=== PATIENT | female | born 1955 | race Caucasian/White ===

== ENCOUNTER → 2016-09-08 | Outpatient (CLI) | payer BC ==
[2016-09-08 12:51] LABS: MEAN CORPUSCULAR HEMOGLOBIN 30.9 pg (27.0-33.0); MEAN CORPUSCULAR HGB CONC 34.5 g/dl (32.0-36.5); MEAN CORPUSCULAR VOLUME 89.5 fl (80.0-96.0); RED CELL DISTRIBUTION WIDTH 12.3 % (11.5-14.5); WHITE BLOOD COUNT 4.7 K/mm3 (4.0-10.0)
[2016-09-08 13:18] LABS: ALBUMIN 4.2 GM/DL (3.2-5.2); ALKALINE PHOSPHATASE 93 U/L (45-117); ALT/SGPT 40 U/L (12-78); ANION GAP 6 MEQ/L (8-16); AST/SGOT 32 U/L (15-37); BILIRUBIN,TOTAL 0.6 MG/DL (0.2-1.0); BLOOD UREA NITROGEN 18 MG/DL (7-18); CALCIUM LEVEL 9.2 MG/DL (8.8-10.2); CARBON DIOXIDE LEVEL 31 MEQ/L (21-32); CHLORIDE LEVEL 106 MEQ/L (98-107); CREATININE FOR GFR 0.84 MG/DL (0.55-1.02); GLOMERULAR FILTRATION RATE > 60.0 (>45); GLUCOSE, FASTING 90 MG/DL (80-110); SODIUM LEVEL 143 MEQ/L (136-145); TOTAL PROTEIN 7.2 GM/DL (6.4-8.2)
[2016-09-11 09:22] LABS: VITAMIN B12 LEVEL 570 PG/ML (247-911)
== END ==
LOC: M LAB 12:14
PROVIDERS: ATTEND Physician Assistant
DX: K50.00 Crohn's disease of small intestine without complications (principal)

== ENCOUNTER → 2017-05-16 | Outpatient (CLI) | payer BC ==
[2017-05-16 20:57] LABS: ALBUMIN 4.1 GM/DL (3.2-5.2); ALBUMIN/GLOBULIN RATIO 1.24 (1.00-1.93); ALKALINE PHOSPHATASE 112 U/L (45-117); ALT/SGPT 72 U/L (12-78); ANION GAP 7 MEQ/L (8-16); AST/SGOT 47 U/L (7-37); BILIRUBIN,TOTAL 0.3 MG/DL (0.2-1.0); BLOOD UREA NITROGEN 18 MG/DL (7-18); CALCIUM LEVEL 8.8 MG/DL (8.8-10.2); CARBON DIOXIDE LEVEL 32 MEQ/L (21-32); CHLORIDE LEVEL 103 MEQ/L (98-107); CREATININE FOR GFR 0.88 MG/DL (0.55-1.02); GLOMERULAR FILTRATION RATE > 60.0 (>45); GLUCOSE, FASTING 161 MG/DL (80-110); POTASSIUM SERUM 3.8 MEQ/L (3.5-5.1); SODIUM LEVEL 142 MEQ/L (136-145); TOTAL PROTEIN 7.4 GM/DL (6.4-8.2)
== END ==
LOC: M LAB 20:06
PROVIDERS: ATTEND Nurse Practitioner Women's Health
DX: Z12.31 Encounter for screening mammogram for malignant neoplasm of breast (principal)

== ENCOUNTER → 2021-02-02 | Outpatient (CLI) | payer OTHER ==
--- NOTE | 2021-02-02 16:27 | REPMRS ---
Patient History The patient states she has not had a clinical breast exam in over a year. Patient is postmenopausal. Family history of unknown cancer in father, breast cancer in maternal aunt, breast cancer in maternal aunt, unknown cancer in paternal grandfather. No breast complaints today Patient signed the MRS sheet No covid vaccine Priors done @ [facility] Patient Identification Verified Digital Woman Screen Mammo: February 02, 2021 - Exam #: [id number] Bilateral CC and MLO view(s) were taken. Technologist: Cici Gonzalez, Technologist Prior study comparison: February 08, 2020, bilateral digital mammo screening bilat, performed at [facility]. July 08, 2018, bilateral digital mammo screening bilat, performed at [facility]. FINDINGS: There are scattered fibroglandular densities. Screening. Digital screening (2D) mammography was performed bilaterally in the CC and MLO projections. Additionally, breast tomosynthesis (3D mammography) was performed bilaterally in the CC and MLO projections. Todays exam was compared to the prior exam/exams. By history, the patient has no complaints of a palpable breast abnormality or other significant breast complaints. The breasts are unchanged in size and shape. There are no wanda-soft tissue densities or spiculated masses. There is no internal architectural distortion. There are no suspicious wanda-calcific clusters. Skin thickening or nipple retraction is not present. IMPRESSION: BI-RADS Category 2- Benign Findings. There is no evidence of malignant alteration of the breasts. Followup examination recommended in one year. The Volpara volumetric breast density category is B, there are scattered areas of fibroglandular densities. This mammogram was [facility] FDA approved computer aided detection system for mammography. The lifetime Tyrer-Cuzick score is 13.3 % Negative x-ray reports should not delay surgical consultation if a dominant or clinically suspicious mass is present. Not all breast cancers can be identified by mammography. Therefore, we recommend that you continue to perform regular breast self-examination and physical examination and then promptly contact your physician of any concerns or changes. Adenosis and dense breasts may obscure an underlying neoplasm. Assessment: BI-RADS/ACR category 2 mammogram. Benign Findings. Recommendation Routine screening mammogram of both breasts in 1 year. Electronically Signed By: Nathen Mcmullen DO 02/02/21 [id number]
== END ==
LOC: M WHC 11:05
PROVIDERS: ATTEND Family Medicine
DX: Z12.31 Encounter for screening mammogram for malignant neoplasm of breast (principal)

== ENCOUNTER → 2022-02-11 | Outpatient (CLI) | payer OTHER | LOC: M WHC 08:02 | PROVIDERS: ATTEND Nurse Practitioner Family | DX: Z12.31 Encounter for screening mammogram for malignant neoplasm of breast (principal) ==

== ENCOUNTER → 2022-06-26 | Outpatient (CLI) | payer BC | LOC: M PLALAB 12:39 → M PLAIMG 12:39 | PROVIDERS: ATTEND Nurse Practitioner Family | DX: M25.551 Pain in right hip (principal) ==

== ENCOUNTER → 2022-09-07 | Outpatient (CLI) | payer BC | LOC: M RAD 10:15 | PROVIDERS: ATTEND Specialist | DX: M50.00 Cervical disc disorder with myelopathy, unspecified cervical region (principal) ==

== ENCOUNTER → 2023-02-26 | Outpatient (CLI) | payer OTHER | LOC: M WHC 09:54 | PROVIDERS: ATTEND Nurse Practitioner Family | DX: Z12.31 Encounter for screening mammogram for malignant neoplasm of breast (principal) ==

== ENCOUNTER → 2024-03-16 | Outpatient (CLI) | payer OTHER | LOC: M WHC 07:36 | PROVIDERS: ATTEND Family Medicine | DX: Z12.31 Encounter for screening mammogram for malignant neoplasm of breast (principal) ==

== ENCOUNTER 2024-10-15 22:32 | Observation (INO) | payer MEDICARE, OTHER ==
[~2024-10-15] VITALS: Ht 165.1 cm; Wt 88.6 kg
[2024-10-15] MEDS: NS (Normal Saline) 0.9% 1,000 ML IV ONE (23:30)
[2024-10-16] MEDS: ACETAMINOPHEN *IV* 1,000 MG in IV 1 EA IV ONE ×2 (00:35→08:16)
[2024-10-16 00:44] LABS: BASO % 0.2 % (0.0-1.0); HEMATOCRIT 31.8 % (36.0-47.0); HEMOGLOBIN 10.6 g/dl (12.0-15.5); LYMPH # 0.6 10^3/uL (1.5-5.0); LYMPH % 7.6 % (24.0-44.0); MEAN CORPUSCULAR HEMOGLOBIN 32.3 pg (27.0-33.0); MEAN CORPUSCULAR HGB CONC 33.3 g/dl (32.0-36.5); MONO # 0.7 10^3/uL (0.0-0.8); MONO % 8.6 % (2.0-8.0); NEUTROPHILS # 6.8 10^3/uL (1.5-8.5); PLATELET COUNT, AUTOMATED 131 10^3/uL (150-450); RED BLOOD COUNT 3.28 10^6/uL (4.00-5.40); WHITE BLOOD COUNT 8.2 10^3/uL (4.0-10.0)
[2024-10-16 00:50] LABS: CK-MB VALUE MASS 4.7 NG/ML (<3.6); ETHYL ALCOHOL (ETHANOL) < 0.003 % (0.000-0.010)
[2024-10-16 00:52] LABS: ALBUMIN 3.5 G/DL (3.2-5.2); ALKALINE PHOSPHATASE 78 U/L (35-104); ALT/SGPT 34 U/L (7.0-40); AST/SGOT 39 U/L (<34); BILIRUBIN,DIRECT 0.2 MG/DL (<0.4); BILIRUBIN,TOTAL 0.7 MG/DL (0.3-1.2); BLOOD UREA NITROGEN 15 MG/DL (9-23); CARBON DIOXIDE LEVEL 31 MMOL/L (20-31); CHLORIDE LEVEL 102 MMOL/L (98-107); CPK CREATINE PHOSPHOKINASE 633 U/L (34-145); CREATININE FOR GFR 0.83 MG/DL (0.55-1.30); GLOMERULAR FILTRATION RATE 76.3 (>45); GLUCOSE, FASTING 148 MG/DL (74-106); MB/CK RELATIVE INDEX 0.74 (< OR =4); POTASSIUM SERUM 4.8 MMOL/L (3.5-5.1); SALICYLATE LEVEL < 3.0 MG/DL (<30); SODIUM LEVEL 139 MMOL/L (136-145); TOTAL PROTEIN 6.4 G/DL (5.7-8.2)
[2024-10-16 00:54] LABS: THYROID STIMULATING HORMONE 0.598 uIU/ML (0.55-4.78)
[2024-10-16 00:56] LABS: OSMOLALITY SERUM 292 MOSM/KG (280-301)
[2024-10-16 02:18] LABS: ABG BASE EXCESS -1.9 (-2.0-2.0); ABG HCO3 23.1 MMOL/L (22.0-26.0); ABG O2 SATURATION 95.9 % (95.0-99.0); ABG PARTIAL PRESSURE CO2 40.3 mmHg (35.0-45.0); ABG PARTIAL PRESSURE O2 87.7 mmHg (75.0-100.0); ABG STANDARD HCO3 22.8 MMOL/L. (22.0-26.0); ABG TOTAL CO2 24.3 MMOL/L (23.0-31.0); ABG pH (ARTERIAL) 7.376 UNITS (7.350-7.450)
[2024-10-16 03:22] LABS: KETONE, URINE AUTO RFX NEGATIVE (NEGATIVE); LEUKOCYTE ESTERASE UR AUTO RFX NEGATIVE (NEGATIVE); MUCUS, URINE RFX SMALL (NEGATIVE); NITRITE, URINE AUTO RFX NEGATIVE (NEGATIVE); RBC, URINE AUTO RFX 0 /HPF (0-3); SQUAM EPITHELIAL CELL UR AURFX 0 /HPF (0-6); WBC, URINE AUTO RFX 7 /HPF (0-3)
[2024-10-16 03:42] LABS: AMPHETAMINES LEVEL URINE NEGATIVE (NEGATIVE); BARBITURATES URINE NEGATIVE (NEGATIVE); CANNABINOIDS URINE NEGATIVE (NEGATIVE); COCAINE METABOLITE URINE NEGATIVE (NEGATIVE); METHADONE URINE NEGATIVE (NEGATIVE); PHENCYCLIDINE URINE NEGATIVE (NEGATIVE)
[2024-10-16 03:48] LABS: BENZODIAZEPINES URINE POSITIVE (NEGATIVE); OPIATES URINE POSITIVE (NEGATIVE)
[2024-10-16 04:28] LABS: INR 1.12; PARTIAL THROMBOPLASTIN TIME 27.5 SECONDS (24.8-34.2); PROTHROMBIN TIME 14.7 SECONDS (12.5-14.5)
[2024-10-16] MEDS: NS (Normal Saline) 0.9% 1,000 ML IV ONE ×2 (05:39→08:15)
[2024-10-16 09:20] LABS: PROCALCITONIN 0.16 ng/ml
[2024-10-16] MEDS: cefTRIAXone SOD 2 GM in DEXTROSE 5% (D5W) ADV/MINI-BAG 50 ML IV ONE (09:30)
[2024-10-16] MEDS: NORCO, ANEXSIA 5/325MG TABLET (HYDROcodone/ACETAMINOPHEN) PO ONE (09:30)
[2024-10-16] MEDS: IBUPROFEN 600MG TAB PO ONE (11:42)
[2024-10-16] MEDS ORDERED: PROHANCE 279.3MG/ML 15ML VIAL As Ordered ONE (12:31)
[2024-10-16] MEDS ORDERED: PROHANCE 279.3MG/ML 5ML VIAL As Ordered ONE (12:31)
[2024-10-16 15:02] LABS: C REACTIVE PROTEIN QUANTITATIV 5.91 MG/DL (<1.0)
[2024-10-16] MEDS ORDERED: LISI5TAB11 PO (15:08)
[2024-10-16 15:10] LABS: ERYTHROCYTE SEDIMENTATION RATE 1 mm/hr (0-30)
[2024-10-16] MEDS ORDERED: KETOROLAC 30 MG/ML 1ML VIAL IV PRN (15:15)
[2024-10-16] MEDS ORDERED: MOM 30ML SUSPENSION UDC PO PRN (15:15)
[2024-10-16] MEDS ORDERED: ACETAMINOPHEN 325 MG TAB PO PRN (15:15)
[2024-10-16] MEDS ORDERED: HYDR-4514 PO (15:28)
[2024-10-16] MEDS ORDERED: THERTAB52 PO (15:28)
[2024-10-16] MEDS ORDERED: CALC1TAB63 PO (15:28)
[2024-10-16] MEDS ORDERED: KETO-204 PO (15:28)
[2024-10-16] MEDS ORDERED: SIMV20TA22 PO ×2 (15:28)
[2024-10-16] MEDS ORDERED: MELO15TA28 PO (15:28)
[2024-10-16] MEDS ORDERED: ONDA-83 PO (15:28)
[2024-10-16] MEDS ORDERED: CLOT1CRE71 TOP (15:28)
[2024-10-16] MEDS: KETOROLAC 30 MG/ML 1ML VIAL IV PRN (15:30)
[2024-10-16] MEDS: ASPIRIN 81MG ENTERIC TABLET PO SCH ×2 (15:33→20:09)
[2024-10-16] MEDS ORDERED: PRES10CA2 PO (15:37)
[2024-10-16] MEDS ORDERED: ASPI81TA26 PO (15:37)
[2024-10-16] MEDS ORDERED: RA M10TA PO (15:37)
[2024-10-16] MEDS ORDERED: COEN100T PO (15:37)
[2024-10-16] MEDS ORDERED: KP F1200 PO (15:37)
[2024-10-16] MEDS ORDERED: PROBCAP14 PO (15:37)
[2024-10-16] MEDS ORDERED: L-LY500T6 PO (15:37)
[2024-10-16] MEDS ORDERED: GLUCCAP4 PO (15:37)
[2024-10-16] MEDS ORDERED: GABA-1490 PO (15:37)
[2024-10-16] MEDS ORDERED: VITA100T29 PO (15:37)
[2024-10-16] MEDS ORDERED: VITA100054 PO (15:37)
[2024-10-16] MEDS ORDERED: CITA20TA7 PO (15:37)
[2024-10-16] MEDS ORDERED: REST0.05 OU (16:21)
[2024-10-16] MEDS ORDERED: LIFI1DRO4 OU (16:21)
[2024-10-16] MEDS ORDERED: HOME MED LIST COMPLETE! XX SCH (16:25)
[2024-10-16] MEDS: IPRATROPIUM 0.5MG/ALBUTEROL 2.5MG INH SOL UD 3ML NEB SCH (16:32)
[2024-10-16] MEDS ORDERED: ONDANSETRON 4MG TAB PO PRN (16:40)
[2024-10-16 17:25] VITALS: BP 145/69; TEMP 97.7; O2SAT 92
[2024-10-16] MEDS: CitaloPRAM (CeleXA) 20 MG TAB PO SCH (17:57)
[2024-10-16] MEDS: CO-ENZYME Q10 50 MG CAP PO SCH (18:00)
[2024-10-16] MEDS: ACETAMINOPHEN 500 MG TAB PO PRN (18:18)
[2024-10-16] MEDS: LOPERAMIDE 2 MG CAPLET PO PRN (19:27)
[2024-10-16 19:29] VITALS: BP 147/56; TEMP 97.7; O2SAT 93
[2024-10-16] MEDS: DOCUSATE SODIUM 100MG CAPSULE PO SCH (20:09)
[2024-10-16] MEDS: SIMVASTATIN 20 MG TAB PO SCH (20:09)
[2024-10-16] MEDS: GABAPENTIN 300 MG CAP PO SCH (20:09)
[2024-10-17 03:49] VITALS: BP 159/80; TEMP 97.7; O2SAT 95
[2024-10-17 06:38] LABS: HEMATOCRIT 27.2 % (36.0-47.0); HEMOGLOBIN 9.1 g/dl (12.0-15.5); MEAN CORPUSCULAR HEMOGLOBIN 31.9 pg (27.0-33.0); MEAN CORPUSCULAR HGB CONC 33.5 g/dl (32.0-36.5); MEAN CORPUSCULAR VOLUME 95.4 fl (80.0-96.0); PLATELET COUNT, AUTOMATED 108 10^3/uL (150-450); RED BLOOD COUNT 2.85 10^6/uL (4.00-5.40); WHITE BLOOD COUNT 7.2 10^3/uL (4.0-10.0)
[2024-10-17 07:17] LABS: BLOOD UREA NITROGEN 10 MG/DL (9-23); CALCIUM LEVEL 7.7 MG/DL (8.3-10.6); CARBON DIOXIDE LEVEL 30 MMOL/L (20-31); CHLORIDE LEVEL 104 MMOL/L (98-107); CREATININE FOR GFR 0.72 MG/DL (0.55-1.30); GLOMERULAR FILTRATION RATE > 90.0 (>45); GLUCOSE, FASTING 143 MG/DL (74-106); POTASSIUM SERUM 3.9 MMOL/L (3.5-5.1); SODIUM LEVEL 143 MMOL/L (136-145)
[2024-10-17 08:50] VITALS: BP 140/67
[2024-10-17] MEDS: lisinopriL 5 MG TAB PO SCH (08:50)
[2024-10-17 12:00] VITALS: BP 152/66; TEMP 97.5; O2SAT 93
== END 2024-10-17 14:40 | disposition home or self-care (01) ==
LOC: EDBD 22:32 → EDUNIT# 22:32 → M ED 10-16 → M ED INP 10-16 00:01 → M MS5PR 10-16 17:15
PROVIDERS: ADMIT Student in an Organized Health Care Education/Training Program; ATTEND Student in an Organized Health Care Education/Training Program
DX: G92.9 Unspecified toxic encephalopathy (principal); T40.2X5A Adverse effect of other opioids, initial encounter; R41.0 Disorientation, unspecified; R50.9 Fever, unspecified; J98.11 Atelectasis; E87.20 Acidosis, unspecified; Z96.641 Presence of right artificial hip joint; Z98.890 Other specified postprocedural states; M19.90 Unspecified osteoarthritis, unspecified site; I10 Essential (primary) hypertension; G47.33 Obstructive sleep apnea (adult) (pediatric); K50.90 Crohn's disease, unspecified, without complications; Z88.2 Allergy status to sulfonamides; Z88.8 Allergy status to other drugs, medicaments and biological substances; Z79.899 Other long term (current) drug therapy; Z79.82 Long term (current) use of aspirin; Z79.890 Hormone replacement therapy
CPT/HCPCS: 36415; 36600; 70450; 70553; 71045; 71250; 73502; 80048; 80076; 80143; 80307; 81001; 82077; 82140; 82550; 82553; 82803; 83605; 83930; 84145; 84443; 84484; 85025; 85027; 85610; 85652; 85730; 86140; 87040; 87486; 87581; 87633; 87798; 93005; 93041; 94010; 94640; 94760; 96361; 96365; 96366; 96367; 96375; 97162; 97530; 99285; A9576; G0378; J0131; J0696; J1885

== ENCOUNTER 2024-10-20 13:48 | Emergency (ER) | payer MEDICARE ==
[~2024-10-20] VITALS: Ht 167.6 cm; Wt 88.4 kg
[~2024-10-20 13:48] MED LIST: ASPI81TA26 PO; CALC1TAB63 PO; CITA20TA7 PO; CLOT1CRE71 TOP; COEN100T PO; GABA-1490 PO; GLUCCAP4 PO; HYDR-4514 PO; KETO-204 PO; KP F1200 PO; L-LY500T6 PO; LIFI1DRO4 OU; LISI5TAB11 PO; MELO15TA28 PO; ONDA-83 PO; PRES10CA2 PO; PROBCAP14 PO; RA M10TA PO; REST0.05 OU; SIMV20TA22 PO; THERTAB52 PO; VITA100054 PO; VITA100T29 PO
[2024-10-20 18:57] LABS: BASO % 0.5 % (0.0-1.0); EOS # 0.1 10^3/uL (0.0-0.5); EOS % 1.4 % (0.0-3.0); HEMATOCRIT 29.8 % (36.0-47.0); LYMPH # 1.5 10^3/uL (1.5-5.0); LYMPH % 23.2 % (24.0-44.0); MEAN CORPUSCULAR HEMOGLOBIN 31.6 pg (27.0-33.0); MEAN CORPUSCULAR HGB CONC 33.6 g/dl (32.0-36.5); MEAN CORPUSCULAR VOLUME 94.3 fl (80.0-96.0); MONO # 0.6 10^3/uL (0.0-0.8); MONO % 9.2 % (2.0-8.0); NEUTROPHILS # 4.1 10^3/uL (1.5-8.5); NEUTROPHILS % 64.6 % (36.0-66.0); PLATELET COUNT, AUTOMATED 220 10^3/uL (150-450); RED BLOOD COUNT 3.16 10^6/uL (4.00-5.40); WHITE BLOOD COUNT 6.3 10^3/uL (4.0-10.0)
[2024-10-20 19:21] LABS: C REACTIVE PROTEIN QUANTITATIV 6.01 MG/DL (<1.0)
[2024-10-20 19:29] LABS: PROCALCITONIN 0.14 ng/ml
[2024-10-20 19:32] LABS: BLOOD UREA NITROGEN 14 MG/DL (9-23); CALCIUM LEVEL 8.9 MG/DL (8.3-10.6); CARBON DIOXIDE LEVEL 32 MMOL/L (20-31); CHLORIDE LEVEL 101 MMOL/L (98-107); GLOMERULAR FILTRATION RATE > 90.0 (>45); GLUCOSE, FASTING 106 MG/DL (74-106); POTASSIUM SERUM 3.3 MMOL/L (3.5-5.1); SODIUM LEVEL 144 MMOL/L (136-145)
[2024-10-20 20:08] LABS: ERYTHROCYTE SEDIMENTATION RATE 50 mm/hr (0-30)
[2024-10-20 20:43] VITALS: BP 169/78; TEMP 98; O2SAT 98
== END 2024-10-20 20:51 | disposition home or self-care (01) ==
LOC: M ED 13:48
DX: G89.18 Other acute postprocedural pain (principal); I10 Essential (primary) hypertension; E78.5 Hyperlipidemia, unspecified; K58.9 Irritable bowel syndrome, unspecified; F10.10 Alcohol abuse, uncomplicated; Z88.2 Allergy status to sulfonamides; Z88.8 Allergy status to other drugs, medicaments and biological substances; Z79.1 Long term (current) use of non-steroidal anti-inflammatories (NSAID); Z79.2 Long term (current) use of antibiotics; Z79.899 Other long term (current) drug therapy; Z79.810 Long term (current) use of selective estrogen receptor modulators (SERMs)

== ENCOUNTER → 2025-03-17 | Outpatient (CLI) | payer MEDICARE ==
[~2025-03-17] MED LIST changes: +D31000CA5 PO; -L-LY500T6 PO; +RA L500T PO; -VITA100054 PO
== END ==
LOC: M WHC 08:28
PROVIDERS: ATTEND Nurse Practitioner Family
DX: Z12.31 Encounter for screening mammogram for malignant neoplasm of breast (principal); M81.0 Age-related osteoporosis without current pathological fracture